=== PATIENT | male | born 1990 | race Caucasian/White ===

== ENCOUNTER 2022-06-10 21:38 | Emergency (ER) | payer SELFPAY ==
[~2022-06-10] VITALS: Ht 177.8 cm; Wt 90.0 kg
[2022-06-10 22:57] LABS: BASOPHILS % 0.4 % (0.0-2.0); EOSINOPHILS % 1.3 % (0.0-5.0); HEMATOCRIT. 40.6 % (42.0-52.0); LYMPHOCYTES % 33.4 % (20.0-50.0); MEAN CORPUSCULAR HEMOGLOBIN 31.8 pg (28.0-32.0); MEAN CORPUSCULAR VOLUME 92.4 fL (80.0-94.0); MEAN PLATELET VOLUME 9.2 fl (7.4-10.4); MONOCYTES % 8.9 % (2.0-8.0); PLATELET 225 x1000/uL (130-400); RED BLOOD CELL COUNT 4.39 mill/uL (4.7-6.1); RED CELL DISTRIBUTION WIDTH 13.1 % (11.6-14.6)
[2022-06-10 23:02] LABS: CHLORIDE 105 mEq/L (98-107)
[2022-06-10 23:11] LABS: ETHANOL BLOOD 58 mg/dL
[2022-06-10] MEDS ORDERED: POTASSIUM CHLORIDE 20MEQ/PACKET PO ONE (23:45)
[2022-06-11 00:15] VITALS: BP 126/70
[2022-06-11] MEDS ORDERED: NALO4SPR BOTHNSTRLS (00:29)
== END 2022-06-11 01:48 | disposition home or self-care (01) ==
LOC: ER 21:38
DX: T40.2X1A Poisoning by other opioids, accidental (unintentional), initial encounter (principal); R41.82 Altered mental status, unspecified; F14.10 Cocaine abuse, uncomplicated; Y92.018 Other place in single-family (private) house as the place of occurrence of the external cause
CPT/HCPCS: 36415; 80053; 80307; 80320; 80329; 82962; 83880; 84484; 85025; 93005; 99283; G0480